=== PATIENT | male | born 1970 | race Caucasian/White ===

== ENCOUNTER 2017-04-02 15:36 | Observation (INO) | payer BC ==
[~2017-04-02] VITALS: Ht 175.3 cm; Wt 162.7 kg
--- NOTE | ~2017-04-02 | HEMODYNAMI ---
PATIENT:MICHAEL HARRIS MEDICAL RECORD: [id number] : 68 LOCATION:[facility] D.2118 ADMISSION DATE: 04/02/17 Generatedon:04/03/201713:14 Patient name: MICHAEL HARRIS Patient #: [id number] SSN: : 1970 Date of study: 04/03/2017 Page: Of Hemodynamic Procedure Report Patient Data Patient Demographics Procedure consent was obtained First Name: MICHAEL Gender: Male Last Name: KIMBERLY : 1970 Middle Initial: LYNN Age: 47 year(s) Patient #: [id number] Race: Unknown Additional ID: [id number] Contact details [address]: [address] [place] [address] [place] State: [place] City: [place] Zip code: [address] Past Medical History Allergies Allergen Reaction Date Comments Reported Other allergy 04/03/2017 Talwin Codeine 04/03/2017 Admission Admission Data Admission Date: 04/02/2017 Admission Time: 15:36 Room #: D.2118 Height (in.): 69 BSA: 2.65 (m2) Height (cm.): 175.26 BMI: 52.87 (kg/m2) Weight (lbs.): 358 Weight (kg.): 162.39 Lab Results Lab Result Date: 04/03/2017 Lab Result Time: 0:00 Biochemistry Name Units Result Min Max Creatinine mg/dl 0.9 --(-*--)-- 0.6 1.3 CBC Name Units Result Min Max Hemoglobin g/dl 17.3 --(---*)-- 13.5 17.5 Procedure Procedure Types Cath Procedure Diagnostic Procedure C [facility] w/Coronaries Miscellaneous Procedures Moderate Sedation up to 15 minutes Procedure Description Procedure Date Procedure Date: 04/03/2017 Procedure Start Time: 12:58 Procedure End Time: 13:12 Procedure Staff Name Function Jimi Hwang MD Performing Physician Deana Hays RT Scrub Dale Sims RN Nurse Kaylah Juan RT Monitor Procedure Data Cath Procedure Fluoroscopy Diagnostic fluoroscopy Total fluoroscopy Time: 1.5 time: 1.5 min min Diagnostic fluoroscopy Total fluoroscopy dose: 501 dose: 501 mGy mGy Contrast Material Contrast Material Type Amount (ml) Isovue 300 64 Entry Location Entry Primary Successful Side Size Upsize Upsize Entry Closure Succes sful Closure Location (Fr) 1 (Fr) 2 (Fr) Remarks Device Remarks Femoral Right 5 Fr Exoseal artery Estimated blood loss: 5 ml Diagnostic catheters Device Type Used For End Catheter Placement Cordis 5Fr JL 4.0 Left Coronary Catheter (MP) Angiography Diagnostic Infinity 5Fr Left Coronary JL 5 catheter Angiography Cordis 5Fr 3DRC Catheter Right Coronary (MP) Angiography Cordis 5Fr Pigtail LV Angiography Catheter (MP) Procedure Complications No complications Procedure Medications Medication Administration Route Dosage Oxygen NC 2 l/min Lidocaine 2% added to field 20 Heparin Flush Bag added to field 2 bags (1000units/500ml NS) 0.9% NaCl I.V. 100 ml/hr Versed I.V. 1 mg Versed I.V. 1 mg Fentanyl I.V. 50 mcg Fentanyl I.V. 50 mcg Versed I.V. 0.5 mg Fentanyl I.V. 25 mcg Hemodynamics Rest BSA: 2.65 (m2) HGB: 17.3 (g/dl) O2 Consumption: Estimated: 302.71 (ml/min) O2 Co nsumption indexed: Estimated:114.23 (ml/min/m) Heart Rate: 55 (bpm) Pressure Samples Time Site Value (mmHg) Purpose Heart Use Rate(bpm) 13:05 LV 133/31,27 EDP 81 Gradients Valve Time Site Site Mean SEP/DFP Peak To Heart Use 1 2 (mmHg) (sec/min) Peak Rate (mmHg) (bpm) Aortic 13:06 LV AO 77 Snapshots Pre Cath Intra NCS Post Cath Vital Signs Time Heart Resp SPO2 NIBP (mmHg) Rhythm Pain Sedation Rate (ipm) (%) Status Level (bpm) 12:30:48 57 18 97 Measuring NSR 0 (11) 10(A) , No pain 12:31:50 60 14 96 206/115(162) NSR 0 (11) 10(A) , No pain 12:36:43 60 16 96 198/106(154) NSR 0 (11) 10(A) , No pain 12:41:23 59 13 95 194/110(143) NSR 0 (11) 10(A) , No pain 12:46:04 49 12 96 185/118(145) NSR 0 (11) 10(A) , No pain 12:50:46 50 11 97 198/109(152) NSR 0 (11) 10(A) , No pain 12:55:37 47 16 96 194/116(146) NSR 0 (11) 10(A) , No pain 13:00:26 60 11 96 195/106(145) NSR 0 (11) 9(A) , No pain 13:05:15 67 14 96 190/118(147) NSR 0 (11) 9(A) , No pain 13:10:01 56 17 96 191/104(141) NSR 0 (11) 10(A) , No pain Medications Time Medication Route Dose Verified Delivered Reason Notes Effe ctiveness by by 12:28:30 Oxygen NC 2 Jimi Buffie used for l/min [facility] faculty dean 12:28:38 Lidocaine 2% added 20ml Jimi Jimi for local to vial [facility] anesthetic field MD CANTU 12:28:46 Heparin Flush added 2 Jimi Jimi used for Bag to bags [facility] procedure (1000units/500ml field MD CANTU NS) 12:28:54 0.9% NaCl I.V. 100 Jimi Buffie Per ml/hr [facility] Sim[facility] RN physician 12:55:44 Versed I.V. 1 mg [address] Buffie [address] [facility] Sim[facility] RN sedation 12:55:52 Fentanyl I.V. 50 [address] for mcg [facility] Sims RN sedation 13:00:45 Versed I.V. 1 [address] [facility] Sim[facility] RN sedation 13:00:52 Fentanyl I.V. 50 [address] for mcg [facility] Sim[facility] RN sedation 13:05:56 Versed I.V. 0.5 Jimi [address] for mg [facility] Michael Sims RN sedation 13:06:03 Fentanyl I.V. 25 Jimi [address] for mcg [facility] Sim[facility] RN sedation Procedure Log Time Note 12:11:43 Kaylah Counts RT(R) sent for patient. Start room use. 12:11:44 Time tracking: Regular hours 12:11:47 Plan of Care:Hemodynamics will remain stable., Cardiac rhythm will remain stable., Comfort level will be maintained., Respiratory function will remain adequate., Patient/ family verbilizes understanding of procedure., Procedure tolerated without complication., Recovers from procedure without complications.. 12:21:23 Patient received from PCU to CCL 2 Alert and oriented. Tansferred to table in Supine position. 12:21:24 Warm blankets applied, and sanjuana hugger turned on for patient comfort. 12:21:24 Correct patient and procedure confirmed by team. 12:21:25 Signed procedure consent form obtained from patient. 12:: ECG and BP/O2 sat monitors applied to patient. 12:: Full Disclosure recording started 12:28:30 Oxygen 2 l/min NC was administered by Dale Sims RN; used for procedure; 12:28:38 Lidocaine 2% 20ml vial added to field was administered by Jimi Hwang MD; for local anesthetic; 12:28:46 Heparin Flush Bag (1000units/500ml NS) 2 bags added to field was administered by Jimi Hwang MD; used for procedure; 12:28:54 0.9% NaCl 100 ml/hr I.V. was administered by Dale Sims RN; Per physician; 12:28:59 Vital chart was started 12:34:42 Rhythm: sinus rhythm 12:35:35 H&P Date Dictated: 04/02/2017 Within 30 days and on chart., H&P Addendum completed by physician on day of procedure. (MUST COMPLETE FOR ALL OUTPATIENTS). 12:36:13 Pre-procedure instructions explained to patient. 12:36:14 Pre-op teaching completed and patient verbalized understanding. 12:36:17 Family in patients room. 12:36:18 Patient NPO since Midnight. 12:36:29 Patient allergic to Other allergyTalwin 12:36:35 Patient allergic to Codeine 12:36:44 Is the patient allergic to Iodine/contrast media? No. 12:36:52 Is patient on blood thinner?No 12:37:00 Patient diabetic? No. 12:37:03 Previous problem with sedation/anesthesia? No ? 12:37:05 Snore? Yes 12:37:05 Sleep apnea? No 12:37:06 Deviated septum? No 12:37:07 Opens mouth fully? Yes 12:37:08 Sticks out tongue? Yes 12:37:09 Airway obstruction? No ? 12:37:11 Dentures? No ? 12:37:14 Pre procedure: right dorsailis pedis pulse 2+ Normal; easily identifiable; not easily obliterated 12:37:16 Modified Albert's test Ulnar < 7 seconds 12:37:17 Patient pain scale 0/10 ?. 12:37:28 IV patent on arrival in right forearm with 0.9% NaCl at [facility]. 12:37:34 Lab results completed and on chart. 12:37:53 Lab Result : Creatinine 0.9 mg/dl 12:37:53 Lab Result : Hemoglobin 17.3 g/dl 12:38:34 Right Radial & Right Groin area was prepped with chlora-prep and draped in sterile fashion 12:38:36 Alarms reviewed by R. N. 12:38:36 Sharps counted by scrub and verified by R.N. 12:38:38 Use device set Femoral Dx 12:38:39 Acist Syringe opened to sterile field. 12:38:40 Bag Decanter opened to sterile field. 12:38:40 Medline Cath Pack opened to sterile field. 12:38:41 Terumo 5Fr Coventry Sheath opened to sterile field. 12:38:41 St Hung 260cm J .035 wire opened to sterile field. 12:38:42 Acist Hand Control opened to sterile field. 12:38:43 Acist Manifold opened to sterile field. 12:38:43 Diagnostic Infinity 5Fr Multipack catheter opened to sterile field. 12:38:44 Tegaderm 4 x 4 opened to sterile field. 12:41:06 Baseline sample Acquired. 12:42:02 Patient Height : 175.26 cm 12:42:05 Patient Weight : 162.39 kg 12:46:12 MBrace Wrist Support opened to sterile field. 12:46:42 Physician paged 12:47:52 Zero performed for pressure channel P1 12:47:55 Zero performed for pressure channel P1 12:53:20 Final Timeout: patient, procedure, and site verified with staff and physician. All members of the team are in agreement. 12:53:22 Right groin site verified by team. 12:53:24 Physical assessment completed. ASA score P 2 - A patient with mild systemic disease as per Jimi Hwang MD. 12:53:27 Sedation plan: IV Moderate Sedation Versed, Fentanyl 12:55:44 Versed 1 mg I.V. was administered by Dale Sims RN; for sedation; 12:55:52 Fentanyl 50 mcg I.V. was administered by Dale Sims RN; for sedation; 12:58:09 Procedure started. 12:58:19 Local anesthetic to right femoral artery with Lidocaine 2% by Jimi Hwang MD.INITIAL ACCESS ONLY 12:58:53 A 5 Fr sheath was inserted into the Right Femoral artery 13:00:21 A Cordis 5Fr JL 4.0 Catheter (MP) was advanced over the wire and used for Left Coronary Angiography. removed, unable to cannulate 13:00:45 Versed 1 mg I.V. was administered by Dale Sims RN; for sedation; 13:00:52 Fentanyl 50 mcg I.V. was administered by Dale Sims RN; for sedation; 13:01:43 A Diagnostic Infinity 5Fr JL 5 catheter was advanced over the wire and used for Left Coronary Angiography. 13:03:20 Catheter removed. 13:03:35 A Cordis 5Fr 3DRC Catheter (MP) was advanced over the wire and used for Right Coronary Angiography. 13:04:31 Catheter removed. 13:05:06 A Cordis 5Fr Pigtail Catheter (MP) was advanced over the wire and used for LV Angiography. 13:05:28 LV gram done using STEWART 13:05:31 Injector settings: Ml/sec: 10, Volume: 20, 13:05:33 LV hemodynamics recorded. 13:05:56 Versed 0.5 mg I.V. was administered by Dale Sims RN; for sedation; 13:06:03 Fentanyl 25 mcg I.V. was administered by Dale Sims RN; for sedation; 13:06:12 EF : 50 % 13:06:24 Catheter removed. 13:06:44 Sheath removed intact; hemostasis achieved with Exoseal to the Right Femoral artery. 13:06:51 Cordis 5Fr Exoseal opened to sterile field. 13:06:53 Procedure ended.(Physican Out) 13:07:07 Fluoroscopy time 01.50 minutes. 13:09:30 Fluoroscopy dose: 501 mGy 13:09:30 Flurop Dose total: 501 13:09:34 Contrast amount:Isovue 300 64ml. 13:09:35 Sharps counted by scrub and verified by R.N. 13:09:36 Insertion/operative site no bleeding no hematoma. 13:09:38 Post-op/insertion site Right Femoral artery dressed using a 4 x 4 and Tegaderm. 13:09:42 Post right femoral artery:stable, clean and dry 13:09:44 Post Procedure Pulses reassessed and unchanged 13:09:48 Post-procedure physical assessment completed. ASA score P 2 - A patient with mild systemic disease as per Jimi Hwang MD. 13:09:50 Post procedure rhythm: unchanged. 13:09:53 Estimated blood loss: 5 ml 13:09:54 Post procedure instruction explained to patient.Patient verbalizes understanding. 13:09:55 Patient needs reinforcement of post procedure teaching. 13:10:09 Procedure type changed to Cath procedure, Diagnostic procedure, LHC, LHC w/Coronaries, Miscellaneous Procedures, Moderate Sedation up to 15 minutes 13:10:15 Procedure Complication : No complications 13:10:16 See physician's report for complete and final results. 13:10:47 Procedure and supply charges have been captured, reviewed, submitted and are correct. 13:12:32 Vital chart was stopped 13:12:36 Report given to PCU. 13:12:39 Patient transfered to PCU with Bed. 13:12:55 Procedure ended. 13:12:55 Full Disclosure recording stopped 13:12:58 End room use (Document Last) Device Usage Item Name Manufacture Quantity Catalog Hospital Part Current Minimal Lot# / Number Charge Number Stock Stock Serial# Code Acist Acist 1 35464 [id number] 383123 413945 20 Syringe Medical Systems Inc Bag Microtek 1 2002S 191389 84440 797487 5 Decanter Medical Inc. Medline Cardinal 1 [id number] 842436 18539 065189 5 Cath Pack Health Terumo 5Fr Terumo 1 [id number] 253098 051714 536377 [address] Hung St Hung 1 003848 392633 695749 449292 30 260cm J .035 wire Acist Hand Acist 1 78263 116202 460073 087440 5 Control Medical Systems Inc Acist Acist 1 46472 368785 920743 390298 5 Manifold Medical Systems Inc Diagnostic Cardinal 1 [id number] 489959 38306 349673 30 Infinity Health 5Fr Multipack catheter Tegaderm 4 3M 1 1626W 733021 205465 435723 5 x 4 MBrace Advanced 1 140-0250-00 930790 60484 610055 5 Wrist Vascular Support Dynamics Cordis 5Fr Cardinal 1 683869 5 JL 4.0 Health Catheter (MP) Diagnostic Cardinal 1 [id number] 089754 871773 190704 5 Infinity Health 5Fr JL 5 catheter Cordis 5Fr Cardinal 1 083087 5 3DRC Health Catheter (MP) Cordis 5Fr Cardinal 1 277793 5 Pigtail Health Catheter (MP) Cordis 5Fr Cardinal 1 EX500 746540 186496 842743 10 [facility] Signature Audit Hartline Stage Time Signature Unsigned Intra-Procedure 04/03/2017 Kaylah 1:14:20 PM Counts RT(R) Signatures Monitor : Kaylah Signature : Counts RT Date : Time : [place] [id number] [facility] [place] [address]
[2017-04-02 16:49] LABS: BASOPHILS 0.2 % (0-2); EOSINOPHILS 2.7 % (0-7); HEMATOCRIT 49.7 % (42.0-54.0); HEMOGLOBIN 16.5 g/dL (13.5-17.5); IMMATURE GRANULOCYTES 0.1 % (0-5); LYMPHOCYTES 38.3 % (15-50); MCH 30.1 pg (26.0-34.0); MCHC 33.2 g/dL (31.0-37.0); MCV 90.7 fL (80.0-100.0); MEAN PLATELET VOLUME 10.3 fL (7.4-10.4); MONOCYTES 7.1 % (2-11); NEUTROPHILS 51.6 % (40-80); PLATELET COUNT 188 10x3/uL (130-400); RBC 5.48 10x6/uL (4.20-6.10); RDW 12.6 % (11.5-14.5); WBC 8.3 10x3/uL (4.8-10.8)
[2017-04-02 17:03] LABS: ALBUMIN 3.1 g/dL (3.4-5.0); ALKALINE PHOSPHATASE 56 U/L (46-116); ALT (SGPT) 27 U/L (10-68); BILIRUBIN - TOTAL 0.44 mg/dL (0.2-1.3); CALC OSMOLALITY 271 mosm/kg (275-300); CALCIUM 8.2 mg/dL (8.5-10.1); CARBON DIOXIDE 33.8 mmol/L (21.0-32.0); CHLORIDE - SERUM 101 mmol/L (98-107); CREATININE - SERUM 0.8 mg/dL (0.6-1.3); GLUCOSE 120 mg/dL (74-106); PROTEIN - SERUM 6.2 g/dL (6.4-8.2); SODIUM 136 mmol/L (136-145); UREA NITROGEN 11 mg/dL (7-18); eGFR NON AFRICAN AMERICAN > 90 mL/min (90-120)
[2017-04-02 17:15] LABS: CKMB 3.1 U/L (0.0-3.6); CREATINE KINASE 210 UL (21-232)
[2017-04-02 17:16] LABS: TROPONIN-I < 0.017 ng/mL (0.000-0.060)
[2017-04-02 18:39] VITALS: BP 157/91; Ht 175.3 cm; Wt 162.7 kg
[2017-04-02 19:00] VITALS: BP 178/96
[2017-04-02] MEDS ORDERED: POT CHLORIDE PO (19:01)
[2017-04-02] MEDS ORDERED: XANAX0.5 MG PO (19:03)
[2017-04-02] MEDS ORDERED: AMBIEN10 MG PO (19:04)
[2017-04-02] MEDS ORDERED: FUROSEMIDE20 MG PO (19:04)
[2017-04-02] MEDS ORDERED: ULTRAM50 MG PO (19:05)
[2017-04-02] MEDS ORDERED: HYDROCODONE-APA1 TAB PO (19:06)
[2017-04-02] MEDS ORDERED: COZAAR100 MG PO (19:07)
[2017-04-02] MEDS ORDERED: VYVANSE60 MG PO (19:07)
[2017-04-02] MEDS ORDERED: BYSTOLIC10 MG PO (19:08)
[2017-04-02] MEDS ORDERED: MOBIC7.5 MG PO (19:08)
[2017-04-02] MEDS ORDERED: NEURONTIN 300300 MG PO (19:08)
--- NOTE | 2017-04-02 20:17 | NUR ---
RESUMED CARE OF PT, LYING IN BED RESPIRATIONS EVEN AND UNLABORED ON ROOM AIR. 68 SR ON TELEMETRY. NO NEEDS VOICED AT THIS TIME, WILL CONTINUE TO MONITOR. CALL LIGHT IN REACH. SEE NURSE ASSESSMENT.
[2017-04-02 23:03] LABS: CKMB 3.1 U/L (0.0-3.6); CREATINE KINASE 174 UL (21-232); TROPONIN-I < 0.017 ng/mL (0.000-0.060)
[2017-04-03] VITALS: BP 199/111
--- NOTE | 2017-04-03 00:02 | NUR ---
CALL LIGHT IN REACH, WILL CONTINUE TO MONITOR.
--- NOTE | 2017-04-03 01:52 | NUR ---
ELEVATED BP 199/111, ARABELLA WHITEHEAD PAGED. AWAITING CALL BACK.
[2017-04-03 04:00] VITALS: BP 198/120
[2017-04-03 04:44] LABS: BASOPHILS 0.1 % (0-2); EOSINOPHILS 2.9 % (0-7); HEMATOCRIT 52.6 % (42.0-54.0); HEMOGLOBIN 17.3 g/dL (13.5-17.5); IMMATURE GRANULOCYTES 0.2 % (0-5); LYMPHOCYTES 39.5 % (15-50); MCH 29.8 pg (26.0-34.0); MCHC 32.9 g/dL (31.0-37.0); MCV 90.5 fL (80.0-100.0); MEAN PLATELET VOLUME 10.4 fL (7.4-10.4); NEUTROPHILS 50.3 % (40-80); PLATELET COUNT 193 10x3/uL (130-400); RBC 5.81 10x6/uL (4.20-6.10); RDW 12.7 % (11.5-14.5)
[2017-04-03 05:28] LABS: CALC OSMOLALITY 275 mosm/kg (275-300); CALCIUM 8.4 mg/dL (8.5-10.1); CARBON DIOXIDE 34.4 mmol/L (21.0-32.0); CHLORIDE - SERUM 101 mmol/L (98-107); CKMB 2.3 U/L (0.0-3.6); CREATINE KINASE 131 UL (21-232); CREATININE - SERUM 0.9 mg/dL (0.6-1.3); GLUCOSE 108 mg/dL (74-106); POTASSIUM - SERUM 4.1 mmol/L (3.5-5.1); SODIUM 138 mmol/L (136-145); UREA NITROGEN 11 mg/dL (7-18); eGFR NON AFRICAN AMERICAN > 90 mL/min (90-120)
[2017-04-03 05:30] LABS: TROPONIN-I < 0.017 ng/mL (0.000-0.060)
--- NOTE | 2017-04-03 07:30 | NUR ---
RECEIVED PT IN BED RESTING QUIETLY WITH EYES CLOSED RESP UNLABORED NAD NOTED
[2017-04-03 08:25] VITALS: BP 164/105
--- NOTE | 2017-04-03 09:14 | NUR ---
RATIONALE FOR SCD'S EXPLAINED. REFUSED SCD'S
[2017-04-03 14:30] VITALS: BP 170/105
--- NOTE | 2017-04-03 16:45 | NUR ---
REVIEWED DISCHARGE INSTRUCTIONS WITH PT AND BOTH STATE UNDERSTANDING COPY GIVEN SALINE LOCK DCDTO RAC WITH IV CATHETER INTACT SITE FREE OF REDNESS OR EDEMA PT DISCHARGED HOME LEFT UNIT VIA W/C IN STABLE CONDITION WITH ALL PERSONAL BELONGINGS
--- NOTE | 2017-04-04 17:14 | DS ---
PATIENT:MICHAEL HARRIS :68 MEDICAL RECORD: [id number] DISCHARGE SUMMARY ADMISSION DATE: 04/02/17 DISCHARGE DATE: 04/03/17 DATE OF ADMISSION: 04/02/2017 DATE OF DISCHARGE: 04/03/2017 ADMITTING DIAGNOSES: Chest pain, uncontrolled hypertension, hypertensive urgency. HOSPITAL COURSE: This is a 47-year-old white male, patient of Dr. Rosas'claudia, admitted with diagnoses as outlined above. He was admitted from the walk-in clinic. Please see the paper chart for the H&P. The patient was admitted. Cardiac enzymes cycled. Cardiology consulted. He was taken to the crime lab analyst. He had a clean catheterization. No intervention done. He did not require any stenting. He is dismissed home. We will have him follow up with house calls and Dr. Rosas. In regards to blood pressure control, we have increased his Bystolic and we left his Cozaar dose the same 100 mg daily. Greater than 30 minutes spent on this discharge. DIAGNOSES: Chest pain, hypertensive urgency. TRANSINT:[id number] Voice Confirmation ID: [id number] DOCUMENT ID: [id number] Dictated By: ARABELLA WHITEHEAD RN I have interviewed/examined the above patient and agree with these documented findings. LEANN STALLINGS MD at 1714 CC: [id number] DICTATION DATE: 04/03/17 1559 GLUE PLANT OPERATOR: 04/04/17 1323 DIS IN 04/03/17 [facility] [address] [place] [address]
--- NOTE | 2017-04-06 13:52 | OP ---
PATIENT NAME: MICHAEL HARRIS MEDICAL RECORD: [id number] :68 LOCATION:D.M2 D.2118 ADMISSION DATE:04/02/17 SURGEON: KOLE SOTO MD DATE OF OPERATION: 04/03/2017 PROCEDURES: Left heart catheterization, selective coronary angiography, right femoral approach. CATHETERS: A 5-Thai sheath, 5/4 left and right Chen, 5/4 pig. The procedure was well tolerated. The patient returned to [place], sheath removed. ExoSeal device placed. FINDINGS: Left ventriculography in 30-degree STEWART view: Normal wall motion, normal systolic function. CORONARY ANATOMY: LEFT MAIN: Left main is free of disease. LAD: Free of disease in the diagonal system. CIRCUMFLEX: Free of disease in the marginal system. RIGHT CORONARY ARTERY: Dominant artery, gives rise to PDA, free of disease. IMPRESSION: Normal systolic function. Normal coronary anatomy. TRANSINT:[id number] Voice Confirmation ID: [id number] DOCUMENT ID: [id number] KOLE SOTO MD at 1352 CC: [id number] DICTATION DATE: 04/03/17 1318 COSTUMING SUPERVISOR: 04/03/17 1830 DIS IN 04/03/17 [place] [id number] [place] [address]
--- NOTE | 2017-04-06 13:52 | CN ---
PATIENT NAME:MICHAEL HARRIS MEDICAL RECORD: [id number] : 68 LOCATION:D. D.2118 ADMIT DATE: 04/02/17 ACCOUNT: [id number] CONSULTING PHYSICIAN: KOLE SOTO MD REFERRING PHYSICIAN: LEANN STALLINGS MD DATE OF CONSULTATION: 04/03/2017 CONSULTATION NOTE HISTORY OF PRESENT ILLNESS: A 47-year-old gentleman with no known history of coronary artery disease. He does have family history of coronary artery disease, hypertension become more difficult to control as of late or at this time. He has had intermittent chest tightness and pressure consistent with angina. Borderline LVH on 12-lead. Pain relieved with rest or blood pressure control. We are seeing him concerning his cardiovascular status. PAST MEDICAL HISTORY: Includes 1. History of hypertension. 2. Osteoarthritis. ALLERGIES: INCLUDE, TALWIN and CODEINE. MEDICATIONS: Cozaar 50 b.i.d., Bystolic 10 q. day, Xanax 0.5 b.i.d. p.r.n., Neurontin 300 mg t.i.d., [place] 10/325 as needed, Vyvanse 60 mg p.o. daily, Mobic 7.5 every day, Ambien 10 mg q.h.s., Ultram 50 q.6 p.r.n., Lasix 20 every day, and potassium supplementation. SOCIAL HISTORY: He is a nonsmoker. 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 No set exercise program. REVIEW OF SYSTEMS: The patient reports easy bruising but reports no swollen glands. The patient reports no fever, no night sweats, no significant weight gain, no significant weight loss. No significant exercise tolerance. The patient reports no dry eyes, no irritation, no vision change. Patient reports no difficulty hearing and no ear pain. Patient reports no frequent nose bleeds or nose and sinus problems. Patient reports on arm pain on exertion. No shortness of breath while lying down. No history of heart murmur. Patient reports no cough, no wheezing or coughing up blood. Patient reports no abdominal pain, no vomiting. Normal appetite. No diarrhea and not vomiting blood. No nausea and no constipation. Patient reports no incontinence. No difficulty urinating. No hematuria. No increased frequency. Patient reports no muscle aches. No weakness, no arthralgias, no back pain. No swelling of the extremities. Patient reports no abnormal mole, no jaundice, no rashes. Reports no loss of consciousness. No weakness and no numbness. No seizures, dizziness, or headaches. The patient reports no depression, no sleep disturbance, feeling safe in a relationship and no alcohol abuse. Patient reports on fatigue. Reports no runny nose or sinus pressure. No itching, no hives, and no frequent sneezing. PHYSICAL EXAMINATION: GENERAL: Pleasant gentleman in no acute distress, appears stated age. VITAL SIGNS: Blood pressure 164/105, pulse 62. HEENT: Normocephalic and atraumatic. NECK: No bruits are noted. HEART: Regular, questionable S4 gallop. CONSULT REPORT [id number] MICHAEL HARRIS LUNGS: Good air excursion. ABDOMEN: Soft and nontender. EXTREMITIES: Pulse 2+. No edema. IMPRESSION: Diffult hypertension, acute coronary syndrome. PLAN: For diagnostic angiography and intervention based on above. TRANSINT:[id number] Voice Confirmation ID: [id number] DOCUMENT ID: [id number] KOLE SOTO MD at 1352 CC: [id number] DICTATION DATE: 04/03/17 0933 JUNIOR GRAPHIC DESIGNER: 04/03/17 1327 DIS IN 04/03/17 [place] [id number] [place] [address]
== END 2017-04-03 16:45 | disposition home or self-care (01) ==
LOC: D.M2 15:36 → OBSVTIME 15:36 → D.M2 04-03 16:45
PROVIDERS: ADMIT Emergency Medicine
DX: I16.0 Hypertensive urgency (principal); R07.89 Other chest pain